=== PATIENT | male | born 1995 | race Caucasian/White ===

== ENCOUNTER 2022-07-04 01:20 | Emergency (ER) | payer MEDICAID, SELFPAY ==
[2022-07-04 01:24] VITALS: BP 121/82; PULSE 105; RESP 16; TEMP 36.6; O2SAT 96; BMI 37.7
--- NOTE | 2022-07-04 03:23 | ED_ITS ---
HPI - Skin/Abscess/Foreign Bdy General Chief complaint: Skin/Abscess/Foreign Body Stated complaint: abscess on low back Time Seen by Provider: 07/04/22 02:57 Source: patient Mode of arrival: ambulatory Limitations: no limitations History of Present Illness HPI narrative: Patient comes to the emergency room complaining of a pilonidal cyst that started hurting approximately 3 days ago. Patient states that since he was in high school, he has had multiple pilonidal cyst. Patient has an appointment with Dr. Gonzales from surgery in 5 days for an intake, seems set a marsupialization will be planned according to the patient. Patient denies any fever or chills Related Data Previous Rx's Medication Instructions Recorded oxycodone 5 mg capsule 5 mg PO TID PRN pain #7 caps 07/04/22 sulfamethoxazole 800 1 tab PO BID #14 tabs 07/04/22 mg-trimethoprim 160 mg tablet (Bactrim DS) Allergies Allergy/AdvReac Type Severity Reaction Status Date / Time No Known Allergies Allergy Unverified 03/04/20 17:53 Review of Systems Review of Systems: Constitutional : No Weight loss, No Fever, No Chills, No Night Sweats, No Fatigue, No Malaise ENT/Mouth : No Hearing loss, No Ear Pain, No Nasal Congestion, No Sinus Pain, No Hoarseness, No sore throat, No Rhinorrhea, No Swallowing Difficulty Eyes: No Eye Pain, No Swelling, No Redness, No Foreign Body, No Discharge, No Vision Changes Cardiovascular : No Chest Pain, No SOB, No Dyspnea on Exertion, No Orthopnea, No Edema, No Palpitations Respiratory : No Cough, No Sputum, No Wheezing, No Smoke Exposure, No Dyspnea Gastrointestinal : No Nausea, No Vomiting, No Diarrhea, No Constipation, No abdominal Pain, No Hematochezia, No Melena Genitourinary : no irregular bleeding, No Dysuria, No Urinary Frequency, No Hematuria, No Urinary Incontinence, No Urgency, No Flank Pain, No Urinary Flow Changes, No Hesitancy Musculoskeletal : No joint pain, No Myalgias, No Joint Swelling Skin : Complaining of recurrent pilonidal cyst Neuro : No Weakness, No Numbness, No Paresthesias, No Loss of Consciousness, No Dizziness, No Headache Psych : No Anxiety/Panic, No Depression, No SI/HI/AH/VH, No Social Issues, Heme/Lymph: No Bruising, No Bleeding,No Lymphadenopathy Endocrine : No Polyuria, No Polydipsia, No Temperature Intolerance FORMERLY [facility], [facility]–1983 Past Medical History Medical History (Updated 07/04/22 @ 04:15 by Radha Marks MD) Chronic recurrent pilonidal cyst Social History Social History Advance Directives: No Physical Exam Vital Signs: Vital Signs: Last Vital Signs Temp 97.9 F 07/04/22 01:24 Pulse 105 H 07/04/22 01:24 Resp 16 07/04/22 01:24 BP 121/82 07/04/22 01:24 Pulse Ox 96 07/04/22 01:24 O2 Del Method 07/04/22 01:24 BMI result Body Mass Index 37.7 Const: Other: Appearance: Alert. Oriented X3. No acute distress. Eyes: Pupils equal, round and reactive to light. ENT: Pharynx normal. Neck: Normal inspection. Neck supple. No lymph nodes noted. No crepitus CVS: Normal heart rate and rhythm. Pulses normal. Normal S1 and S2 Respiratory: No respiratory distress. Breath sounds normal. No Wheezing. No rales Abdomen: Soft and nontender. No rigidity. No distention. Skin: Skin warm and dry. Patient has a small pilonidal cyst, midline, very tender to touch. Ultrasound shows a small, less than 1 cm cyst Extremities: No lower extremity edema. No Lacerations. No Rash Neuro: Oriented X 3. No motor deficit. No sensory deficit. Moving all extremities. No slurred speech. CN 2 through 12 grossly intact Psych: calm, cooperative, normal affect Course Course Course Narrative: -patient has had this recurrent pilonidal cyst, patient agreeable to incision and drainage Medical Decision Making Medical Decision Making [facility] Narrative: Approximately 20 mL pus were drained -patient has packing in place. -patient instructed to call Dr. Gonzales' office later today, hopefully some of the cancels outpatient surgery, patient can be put on the list Procedures Abscess I/D Site: other (Pilonidal cyst) Local Anesthetic: lidocaine 1% Amount of anesthesia used (mL): 10 Technique: incised with blade and ultrasound guided Amount of fluid expressed (mL): 20 Packing used?: iodoform Discharge Plan Discharge Clinical Impression: Chronic recurrent pilonidal cyst Patient Disposition: Home, Self-Care Instructions: Pilonidal Cyst (ED) Additional Instructions: Please follow-up with your primary care physician tomorrow. If you have any worsening or new symptoms, please return to the emergency room or call 911 Prescriptions: New oxycodone 5 mg capsule 5 mg PO TID PRN (Reason: pain) Qty: 7 0RF Rx Instructions: Partial Fill upon patient request. sulfamethoxazole-trimethoprim [Bactrim DS] 800-160 mg tablet 1 tab PO BID Qty: 14 0RF
[2022-07-04] MEDS: Lidocaine HCl 1 % 20 ML VIAL 30 ML INFILTRATI (04:11)
[2022-07-04] MEDS: oxyCODONE HCl Immed Release 5 MG TABLET PO (04:49)
[2022-07-04 04:51] VITALS: RESP 16; O2SAT 98
== END 2022-07-04 04:52 | disposition home or self-care (01) ==
PROVIDERS: Emergency Provider Emergency Medicine
DX: L05.91 Pilonidal cyst without abscess (principal)
CPT/HCPCS: 10080; 99283; 99284

== ENCOUNTER → 2022-07-10 14:34 | Outpatient (BNVA) | payer MEDICAID, SELFPAY | PROVIDERS: Visit Provider Surgery | DX: L05.91 Pilonidal cyst without abscess (principal) | CPT/HCPCS: 99202 ==

== ENCOUNTER 2022-08-10 10:19 | Emergency (ER) | payer MEDICAID, SELFPAY ==
[2022-08-10 10:29] VITALS: BP 147/93; PULSE 81; RESP 16; TEMP 36.6; O2SAT 99; BMI 29.9
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
== END 2022-08-10 12:00 | disposition home or self-care (01) ==
PROVIDERS: Emergency Provider Emergency Medicine
DX: S80.00XA Contusion of unspecified knee, initial encounter (principal); V43.52XA Car driver injured in collision with other type car in traffic accident, initial encounter; M62.838 Other muscle spasm; Y93.89 Activity, other specified; Y92.414 Local residential or business street as the place of occurrence of the external cause; Y99.9 Unspecified external cause status
CPT/HCPCS: 99283

== ENCOUNTER 2022-08-18 06:09 | Day surgery (SDC) | payer MEDICAID, SELFPAY ==
[2022-08-15 08:16] VITALS: BMI 37.7
--- NOTE | 2022-08-17 11:40 | HO.ANESPROP2 ---
Documented by User: Delores Green NP 08/17/22 11:41 HPI - Anesthesia Eval Consult details Narrative: 27yo M for Excision Pilonidal Cyst of the sacrococcygeal area PMFSH Active Problems Active Problems: All Active Problems (Updated 08/11/22 @ 00:01 by Background Daemon) Morbid obesity (Acute) Chronic recurrent pilonidal cyst (Acute) Past Medical History Medical History (Updated 08/11/22 @ 00:01 by Background Daemon) Chronic recurrent pilonidal cyst Morbid obesity Family History Family History Mother Hernia Father Prostate CA Surgical History Surgical History (Updated 08/18/22 @ 06:15 by Casandra Segal RN) History of incision and drainage Hx of hand surgery Social History Social History (Updated 07/10/22 @ 14:53 by Daisy Zhou CMA) Alcohol intake: never Patient Tobacco Use Status: Former Tobacco user Quit Date: > 1 yr ago Cigarette Packs Per Day: 0 Use of substances other than those prescribed or required for medical reasons: No Are you DNR?: No Advance Directives: No Advance Directives Information Provided: Yes Meds Allergies Allergy/AdvReac Type Severity Reaction Status Date / Time No Known Allergies Allergy Unverified 07/10/22 14:48 Home Medications Medication Instructions Recorded Confirmed Last Taken Type multivitamin 1 tab PO DAILY 08/18/22 08/18/22 Unknown History Exam Exam Date and Time: August 17, 2022 1140 Height,Weight and Vital Signs: Height 6 ft 4 in Weight 140.614 kg Assessment and Plan Assessment Anesthesia Assessment: Chart Reviewed Documented by User: Mario Oneal MD 08/18/22 07:59 PMFSH Past Medical History Medical History (Updated 08/11/22 @ 00:01 by Background Daaurora) Chronic recurrent pilonidal cyst Morbid obesity Family History Family History Mother Hernia Father Prostate CA Family history of problems with anesthesia: No Surgical History Surgical History (Updated 08/18/22 @ 06:15 by Casandra Segal RN) History of incision and drainage Hx of hand surgery History of Problems with Anesthesia: No Social History Social History (Updated 07/10/22 @ 14:53 by Daisy Zhou CMA) Alcohol intake: never Patient Tobacco Use Status: Former Tobacco user Quit Date: > 1 yr ago Cigarette Packs Per Day: 0 Use of substances other than those prescribed or required for medical reasons: No Are you DNR?: No Advance Directives: No Advance Directives Information Provided: Yes Meds Allergies Allergy/AdvReac Type Severity Reaction Status Date / Time No Known Allergies Allergy Unverified 07/10/22 14:48 Home Medications Medication Instructions Recorded Confirmed Last Taken Type multivitamin 1 tab PO DAILY 08/18/22 08/18/22 Unknown History Exam Airway Mallampati Class: II TM Dist: >3cm Neck ROM: Full Heart: rrr Lungs: cta Assessment and Plan Final Anesthetic Review Family History of Problems with Anesthesia: No History of Problems with Anesthesia: No NPO: Yes ASA Class: II Final Preanesthetic Review: No Changes in Pt Med Stat, Meds/Allgs Chart Reviewed, Consent Obtained/Reviewed and Anes Risks/Benef Reviewed Patient Risk: Low Procedure Risk: Low Anesthetic Plan Anesthetic Plan: GA and Agree w/ Assess. and Plan Disposition: Standard PACU
[2022-08-18] VITALS (7 sets, daily range): BP systolic 122–147; BP diastolic 70–92; PULSE 77–86; RESP 15–18; TEMP 35.8–36.3; O2SAT 93–98
[2022-08-18] MEDS: Lactated Ringers 1,000 ML 100 ML IVCONT (06:39)
--- NOTE | 2022-08-18 07:24 | MHC.SHP ---
Pre-Procedural Eval Section A Date of Service: 08/18/22 Section B Chief Complaint: Pilonidal cyst without abscess Details of Present Illness: recurrent sacrococcygeal swelling and drainage Relevant Family History (Specify if Yes): No Present Medications: see Short Stay Collaborative assessment Medical History: Significant History (obesity) History of Previous Operations: Relevant previous surgery/procedure and date(s) Allergies: Allergies Allergy/AdvReac Type Severity Reaction Status Date / Time No Known Allergies Allergy Unverified 07/10/22 14:48 Review of Systems Sugical H&P ROS: Negative: Constitution, Cardiovascular, Respiratory, Neurological, Psychiatric, Hem-Onc, Allergic/Immunologic, Gastrointestinal, Genitourinary, Musculoskeletal, Integumentary, Endocrine and Eyes/Ears/Nose/Throat Exam Surgical H&P Exam: Normal: HEENT, Normal: Heart, Normal: Lungs, Normal: Extremities, Normal: Abdomen, Normal: Skin and Normal: Neurological Exam Comment: induration on sacrococcygea area Plan Diagnosis/Plan: Unchanged I have reviewed the history and physical and performed a pertinent physical examination on my patient. No changes have occurred unless specified. Time Spent With Patient Time: Total time managing care of this patient today ____ minutes.
--- NOTE | 2022-08-18 08:10 | W.PM.OPN ---
Operative Note Operative Note Date of Service: 08/18/22 Narrative: Preop diagnosis: Pilonidal cyst, sacrococcygeal area Postop diagnosis: The same Procedure: Excision of pilonidal cyst, sacrococcygeal area Surgeon: Alex Calvin MD assistant operations manager: ELAINE Mclaughlin The patient is a 27-year-old male with a wide area of induration on the sacrococcygeal region, with recurrent swelling, and chronic drainage. This was consistent with a pilonidal cyst. He understood the technique of excision. He was aware of the risks, benefits, and alternatives. he was brought to the operating room. He was placed in prone position. The buttocks were retracted with wide tape laterally. The perianal area was prepped and draped in the usual sterile fashion. A surgical time-out. The patient received cefazolin 2 g IV preoperatively I infiltrated the planned line of incision with lidocaine 1%. I made the incision on the skin using blade 15 ellliptically around this entire and area of induration. I carried incision down through the full-thickness of the skin and subcutaneous fat using electrocautery. I continued to dissect through the thick subcutaneous layer to excise the entire indurated area. I may certain that all the disease skin and subcutaneous tissue and potential tracts were removed with the specimen. I excised area was 11 cm long, 7 cm wide and 6 cm at the deepest segment. I copiously irrigated. I cauterized oozing areas. I then undermine both sides to flaps with thick subcutaneous fat and skin allow closure without tension. Once hemostasis was confirmed, I reapposed the deep subcutaneous layer with Polysorb 3-0 simple interrupted sutures. Skin closure was achieved with nylon 3-0 interrupted sutures, simple alternating with vertical mattress The area was then infiltrated with Marcaine 0.5% for postop analgesia. Dressings were applied. The procedure was completed The patient tolerated procedure well. There were no immediate complications. Initial and final counts of sponges and instruments were correct. Estimated blood loss about 75 cc. The patient was extubated without difficulty and transferred to the recovery room with stable vital signs.
== END 2022-08-18 10:55 | disposition home or self-care (01) ==
PROVIDERS: Visit Provider Surgery
PROC: (CPT 11771; principal; 2022-08-18 07:30)
DX: L05.91 Pilonidal cyst without abscess (principal); E66.01 Morbid (severe) obesity due to excess calories; Z68.37 Body mass index [BMI] 37.0-37.9, adult; Z87.891 Personal history of nicotine dependence
CPT/HCPCS: 11771; 88304; J0131; J0690; J1100; J1885; J2405; J2795

== ENCOUNTER 2022-08-27 15:39 | Emergency (ER) | payer MEDICAID, SELFPAY ==
[2022-08-27 15:45] VITALS: BP 124/55; PULSE 81; RESP 18; TEMP 36.6; O2SAT 100; BMI 35.3
--- NOTE | 2022-08-27 15:45 | ED_ITS ---
HPI - Skin/Abscess/Foreign Bdy General Chief complaint: Recheck/Abnormal Lab/Rx Stated complaint: get stiches checked Time Seen by Provider: 08/27/22 15:45 Source: patient Mode of arrival: ambulatory Limitations: no limitations History of Present Illness HPI narrative: 27 yo male presents to the ER for evaluation of a bleeding episode after he had pilonidal cyst removal by Dr. Calvin on 08/18/22. He states he had just gone to the bathroom when he was walking in his home and he felt liquid running down his leg. He states it was blood. There was no pus drainage. He put a new dressing on and came right to the ER for evaluation. He reports ongoing pain, up to a 9/10. He has been taking his pain medications as prescribed by Dr. Calvin. He has had no bleeding episodes except for the 1 today. He also reports no bowel movement since before the operation. He is not taking any laxatives or stool softeners. He denies any abdominal pain, nausea, vomiting. MD complaint: other (Postop bleeding) Onset (ago): minute(s) Location: buttocks Severity: severe Severity scale (1-10): 9 Relieving factors: medication Exacerbating factors: other (Sitting and sleeping) Context: other (Recent pilonidal cyst excision) Associated symptoms: other (Constipation) Treatments prior to arrival: bandages Related Data Home Medications Medication Instructions Recorded Confirmed multivitamin 1 tab PO DAILY 08/18/22 08/18/22 Previous Rx's Medication Instructions Recorded cyclobenzaprine 10 mg tablet 10 mg PO TID PRN muscle spasm #14 08/10/22 tabs ibuprofen 800 mg tablet 800 mg PO Q8H PRN pain #14 tabs 08/10/22 ibuprofen 600 mg tablet 600 mg PO Q6H PRN pain #30 tabs 08/18/22 oxycodone-acetaminophen 5 mg-325 1 tab PO Q4-6H PRN pain #30 tabs 08/18/22 mg tablet (Percocet) docusate sodium 100 mg capsule 100 mg PO BID #20 caps 08/27/22 (Colace) polyethylene glycol 3350 17 gram 17 g PO DAILY #14 ea 08/27/22 oral powder packet (Miralax) sennosides 8.6 mg capsule (senna) 8.6 mg PO BEDTIME #10 caps 08/27/22 Allergies Allergy/AdvReac Type Severity Reaction Status Date / Time No Known Allergies Allergy Unverified 07/10/22 14:48 Review of Systems Review of Systems: Yes all other systems are reviewed and are negative [facility] Past Medical History Medical History (Updated 08/27/22 @ 15:53 by ELAINE Carvalho) Chronic recurrent pilonidal cyst Morbid obesity Surgical History (Updated 08/25/22 @ 15:41 by MISSY Yeung) History of excision of pilonidal cyst (08/18/22) History of incision and drainage Hx of hand surgery Family History Family History Mother Hernia Father Prostate CA Social History Social History (Updated 07/10/22 @ 14:53 by Daisy Zhou CMA) Alcohol intake: never Patient Tobacco Use Status: Former Tobacco user Quit Date: > 1 yr ago Cigarette Packs Per Day: 0 Advance Directives: No Advance Directives Information Provided: Yes Physical Exam Vital Signs: Appearance: Alert. Oriented X3. No acute distress. HEENT: normal inspection Respiratory: No respiratory distress. Back: gluteal cleft with moderate surrounding ecchymosis, there is a well healing surgical incision with multiple sutures in place, no wound dehiscence, no active area of bleeding. There is a small area midway down the incision with dried blood, wound margin seems to be well approximated. Skin: Skin warm and dry. Normal skin color. Normal skin turgor. No rashes. Extremities: Normal inspection x4, normal range of motion Neuro: Oriented X 3 grossly normal, nonfocal Medical Decision Making Medical Decision Making MDM Narrative: 27-year-old male presents to the ER for evaluation of bleeding from his surgical wound 9 days after he had a pilonidal cyst excised by Dr. Calvin. No active bleeding on arrival. Wound appears to be healing appropriately. He has a postop appointment with Dr. Toney tomorrow at 10:00. He has postoperative constipation and has been taking opiates without any stool softeners or laxatives. Will start him on a bowel regimen. Prescription sent to his pharmacy. He was counseled. He will follow-up with Dr. Calvin in the morning. Return precautions were discussed. Stable for DC. Differential Diagnosis Differential Diagnoses: The differential diagnosis associated with the presentation includes Wound dehiscence, superficial, brief bleeding episode, no evidence of cellulitis or postoperative infection, no delayed wound healing External Record Review External record reviewed: Inpatient record, Office record and Outpatient record Prescription Management I considered prescription management with: Other (Laxative) Critical Care Time Critical Care Time Critical Care Time: No Discharge Plan Discharge Clinical Impression: Post-op pain, Constipation Patient Disposition: Home, Self-Care Instructions: Constipation (ED), Acute Wounds (ED) Additional Instructions: Your wound appeared to be intact, no evidence of active bleeding or the wound coming apart. Continue frequent dressing changes and monitoring for bleeding. Continue prescribed pain medication as directed. Increase your fiber intake and stay hydrated. Take the prescribed laxatives and stool softeners for your constipation. Prescriptions: New polyethylene glycol 3350 [Miralax] 17 gram powder in packet 17 g PO DAILY Qty: 14 0RF senna 8.6 mg capsule 8.6 mg PO BEDTIME Qty: 10 0RF docusate sodium [Colace] 100 mg capsule 100 mg PO BID Qty: 20 0RF No Action cyclobenzaprine 10 mg tablet 10 mg PO TID PRN (Reason: muscle spasm) Qty: 14 0RF ibuprofen 800 mg tablet 800 mg PO Q8H PRN (Reason: pain) Qty: 14 0RF multivitamin Tablet 1 tab PO DAILY oxycodone-acetaminophen [Percocet] 5-325 mg tablet 1 tab PO Q4-6H PRN (Reason: pain) Qty: 30 0RF Rx Instructions: Partial Fill upon patient request. ibuprofen 600 mg tablet 600 mg PO Q6H PRN (Reason: pain) Qty: 30 0RF
== END 2022-08-27 16:00 | disposition home or self-care (01) ==
PROVIDERS: Emergency Provider Student in an Organized Health Care Education/Training Program
DX: G89.18 Other acute postprocedural pain (principal); K59.00 Constipation, unspecified; Z87.891 Personal history of nicotine dependence; Z79.899 Other long term (current) drug therapy
CPT/HCPCS: 99283

== ENCOUNTER → 2022-08-28 10:53 | Outpatient (BNVA) | payer MEDICAID, SELFPAY | PROVIDERS: PCP Internal Medicine; Visit Provider Surgery ==

== ENCOUNTER → 2022-09-06 15:33 | Outpatient (BNVA) | payer MEDICAID, SELFPAY | PROVIDERS: PCP Internal Medicine; Visit Provider Surgery ==

== ENCOUNTER → 2023-01-24 10:25 | Outpatient (BNVA) | payer OTHER, SELFPAY | PROVIDERS: PCP Internal Medicine; Visit Provider Physician Assistant | DX: S79.911A Unspecified injury of right hip, initial encounter (principal); X58.XXXA Exposure to other specified factors, initial encounter | CPT/HCPCS: 99204 ==

== ENCOUNTER → 2023-01-26 10:37 | Outpatient (BNVA) | payer OTHER, SELFPAY | PROVIDERS: PCP Internal Medicine; Visit Provider Physician Assistant | DX: S76.191A Other specified injury of right quadriceps muscle, fascia and tendon, initial encounter (principal); S73.191A Other sprain of right hip, initial encounter; X58.XXXA Exposure to other specified factors, initial encounter | CPT/HCPCS: 99213 ==

== ENCOUNTER 2023-10-16 08:06 | Emergency (ER) | payer OTHER, SELFPAY ==
[2023-10-16 08:40] VITALS: BP 126/78; PULSE 89; RESP 18; TEMP 36.3; O2SAT 98; BMI 38.8
[2023-10-16 09:01] LABS: IDNOW Serial# 08D9AD1C; Strep A Nucleic Acid Negative (Negative)
[2023-10-16 09:07] LABS: COVID-19 Test Negative (Negative); IDNOW Serial# 58CA691E
[2023-10-16 09:11] LABS: IDNOW Serial# 9DB6401D; Influenza A Negative (Negative); Influenza B2 Negative (Negative)
--- NOTE | 2023-10-16 10:40 | ED.URI ---
HPI - URI/Sore Throat General Chief Complaint: Upper Respiratory Symptoms Stated Complaint: Ear and Throat Pain Time Seen by Provider: 10/16/23 10:27 Source: patient Mode of arrival: ambulatory Limitations: no limitations History of Present Illness HPI Narrative: This is a 28-year-old male history of obesity, pilonidal cyst presenting to the emergency department with a few days of right-sided ear pain, headache, sore throat, fatigue, malaise, myalgias. Patient reports he is just feeling overall unwell also reporting associated body aches and pains. Denies sick contacts. Denies chest pain, shortness of breath, nausea, vomiting, abdominal pain, vision changes, dizziness, weakness, changes in voice or drooling. Patient is still eating and drinking. Related Data Home Medications ?Medication ?Instructions ?Recorded ?Confirmed multivitamin 1 tab PO DAILY 08/18/22 08/18/22 Previous Rx's ?Medication ?Instructions ?Recorded cyclobenzaprine 10 mg tablet 10 mg PO TID PRN muscle spasm #14 08/10/22 tabs ibuprofen 600 mg tablet 600 mg PO Q6H PRN pain #30 tabs 08/18/22 docusate sodium 100 mg capsule 100 mg PO BID #20 caps 08/27/22 (Colace) polyethylene glycol 3350 17 gram 17 g PO DAILY #14 ea 08/27/22 oral powder packet (Miralax) sennosides 8.6 mg capsule (senna) 8.6 mg PO BEDTIME #10 caps 08/27/22 oxycodone-acetaminophen 5 mg-325 1 tab PO Q4-6H PRN pain #20 tabs 08/28/22 mg tablet (Percocet) ibuprofen 800 mg tablet 800 mg PO TID PRN pain #60 tabs 01/24/23 acetaminophen 325 mg capsule 325 mg PO Q4H PRN pain #30 caps 10/16/23 (Tylenol) amoxicillin 875 mg-potassium 1 tab PO BID 10 days #20 tabs 10/16/23 clavulanate 125 mg tablet ciprofloxacin 0.3 %-dexamethasone 4 drp otic (ears) BID 7 days #7.5 10/16/23 0.1 % ear drops,suspension mL (Ciprodex) Allergies Allergy/AdvReac Type Severity Reaction Status Date / Time No Known Allergies Allergy Verified 10/16/23 08:41 Review of Systems Review of Systems: Yes all other systems are reviewed and are negative FORMERLY [facility], [facility]–1983 Past Medical History Attestation statement: The following information was validated with the patient. Source: old records reviewed and nursing notes reviewed Medical History Morbid obesity Chronic recurrent pilonidal cyst Surgical History History of excision of pilonidal cyst (08/18/22) Hx of hand surgery History of incision and drainage Family History Family History Mother Hernia Father Prostate CA Social History Social History Alcohol intake: never Patient Tobacco Use Status: Former Tobacco user Quit Date: > 1 yr ago Cigarette Packs Per Day: 0 Smoked in Last 30 Days: No Use of substances other than those prescribed or required for medical reasons: No Advance Directives: No Advance Directives Information Provided: Yes Do you have a plan to hurt others: No Plan Physical Exam Vital Signs: Vital Signs: Last Vital Signs Temp 97.4 F 10/16/23 11:21 Pulse 85 10/16/23 11:21 Resp 20 10/16/23 11:21 BP 138/88 10/16/23 11:21 Pulse Ox 96 10/16/23 11:21 O2 Del Method Room Air 10/16/23 11:21 BMI result Body Mass Index 38.8 Vital signs stable Appearance: Alert.? Oriented X3.? No acute distress.? Head: Normocephalic, atraumatic, no step-offs or deformities Eyes: Pupils equal, round and reactive to light.? ENT:? Uvula midline. Tonsils with slight edema, no erythema, exudate or abscess noted. Speaking in full sentences controlling secretions well. Right tympanic membrane erythematous and bulging with associated ear canal erythema and discomfort with manipulation of right external ear. No right-sided mastoid tenderness. Left tympanic membrane, ear canal normal. No pain with manipulation of left external ear. No mastoid tenderness bilaterally. Neck: Normal inspection.? Neck supple.? CVS: Normal heart rate and rhythm.? Pulses normal.? Respiratory: No respiratory distress.? Breath sounds normal.? Abdomen: Soft and nontender.? Skin: Skin warm and dry.? Normal skin color.? Normal skin turgor.? Extremities: No lower extremity edema.? No calf ttp. 5/5 strength to bilateral upper and lower extremities Back: No midline tenderness, no C-spine tenderness, full range of motion, no CVA tenderness bilaterally Neuro: Oriented X 3.? No motor deficit.? No sensory deficit. CN 2-12 intact . Normal [id number], [id number] steady tandem gait normal coordination. Negative Romberg and pronator drift. Course Reevaluation(s) Reevaluation #1: Flu, COVID, RSV negative. Strep negative. Will treat him for otitis media and otitis externa. Educated patient on diagnosis and treatment plan, answered all question, patient verbalizes understanding. At this time patient will be discharged home, advised to return with new or worsening symptoms. Educated on worrisome signs and symptoms and when to return. At this time I feel comfortable discharge home. Time: 10:44 Medical Decision Making Medical Decision Making MDM Narrative: 28-year-old male presents with fatigue, malaise, myalgias, right-sided ear pain, headache, sore throat times a few days worsening. No sick contacts. Physical exam Uvula midline. Tonsils with slight edema, no erythema, exudate or abscess noted. Speaking in full sentences controlling secretions well. Right tympanic membrane erythematous and bulging with associated ear canal erythema and discomfort with manipulation of right external ear. No right-sided mastoid tenderness. Left tympanic membrane, ear canal normal. No pain with manipulation of left external ear. No mastoid tenderness bilaterally. History and physical exam concerning for viral illness with concomitant right-sided otitis media no otitis externa. No signs of mastoiditis, perforated tympanic membrane, necrotic ear. Unlikely retropharyngeal abscess, peritonsillar abscess, acute threat to airway, epiglottitis, intracranial hemorrhage, stroke, posterior stroke. Other differentials include viral illness flu versus COVID versus mononucleosis. Plan at this time viral testing, strep test Differential Diagnosis Differential Diagnoses: The differential diagnosis associated with the presentation includes History and physical exam concerning for viral illness with concomitant right-sided otitis media no otitis externa. No signs of mastoiditis, perforated tympanic membrane, necrotic ear. Unlikely retropharyngeal abscess, peritonsillar abscess, acute threat to airway, epiglottitis, intracranial hemorrhage, stroke, posterior stroke. Other differentials include viral illness flu versus COVID versus mononucleosis. Admission/Observation Consideration of admission/observation: Escalation of care including admission/observation considered Unlikely Lab Data MDM Lab Attestation statement: I reviewed the patient's lab results. Labs: Lab Results 10/16/23 Range/Units 08:47 COVID-19 ([facility]) Negative (Negative) COVID-19 Clin Com See Note Influenza Type A ([facility]) Negative (Negative) Influenza Type B ([facility]) Negative (Negative) Influenza A & B Note See Note S. pyogenes GrpA [facility] Negative (Negative) External Record Review External record reviewed: Inpatient record, Office record, Outpatient record, Prior outpatient labs, Prior outpatient radiology, Primary care record and Outside ED record Prescription Management I considered prescription management with: Pain Medication and Antibiotic Chronic Conditions Patient?s care impacted by: Other (obesity ) Discharge Plan Discharge Clinical Impression: Otitis media, Viral infection, Pharyngitis, Otitis externa Patient Disposition: Home, Self-Care Instructions: Pharyngitis (ED), Otitis Externa (DC), Ear Infection (ED), Viral Syndrome (ED) Additional Instructions: Take your medications as prescribed. If you were prescribed antibiotics today, it is important that you take your medication to their entirety, do not skip any doses, do not finish them early. Follow-up with your primary care provider this week. Return to the emergency department with new or worsening symptoms. Such as fevers, chills, chest pain, shortness of breath, nausea, vomiting, dizziness, headache, vision changes, lethargy In case of emergency call 911 Prescriptions: New amoxicillin-pot clavulanate 875-125 mg tablet 1 tab PO BID 10 Days Qty: 20 0RF ciprofloxacin-dexamethasone [Ciprodex] 0.3-0.1 % drops,suspension 4 drp otic (ears) BID 7 Days Qty: 7.5 0RF acetaminophen [Tylenol] 325 mg capsule 325 mg PO Q4H PRN (Reason: pain) Qty: 30 0RF No Action cyclobenzaprine 10 mg tablet 10 mg PO TID PRN (Reason: muscle spasm) Qty: 14 0RF polyethylene glycol 3350 [Miralax] 17 gram powder in packet 17 g PO DAILY Qty: 14 0RF senna 8.6 mg capsule 8.6 mg PO BEDTIME Qty: 10 0RF docusate sodium [Colace] 100 mg capsule 100 mg PO BID Qty: 20 0RF multivitamin Tablet 1 tab PO DAILY ibuprofen 600 mg tablet 600 mg PO Q6H PRN (Reason: pain) Qty: 30 0RF oxycodone-acetaminophen [Percocet] 5-325 mg tablet 1 tab PO Q4-6H PRN (Reason: pain) Qty: 20 0RF Rx Instructions: Partial Fill upon patient request. ibuprofen 800 mg tablet 800 mg PO TID PRN (Reason: pain) Qty: 60 0RF Referrals: Malena Michaels MD [Primary Care Provider] - 2 days Stand Alone Forms: Work/School Release Interventions: ED Discharge Assessment Last Done: 10/16/23 11:21 Discharge Date/Time: 10/16/23 11:22 Print Language: Lithuanian
[2023-10-16 11:21] VITALS: BP 138/88; PULSE 85; RESP 20; TEMP 36.3; O2SAT 96
== END 2023-10-16 11:22 | disposition home or self-care (01) ==
PROVIDERS: Emergency Provider Emergency Medicine; PCP Internal Medicine
DX: H66.91 Otitis media, unspecified, right ear (principal); H60.91 Unspecified otitis externa, right ear; J02.9 Acute pharyngitis, unspecified; B34.9 Viral infection, unspecified; Z11.52 Encounter for screening for COVID-19
CPT/HCPCS: 87502; 87635; 87651; 99283; 99284

== ENCOUNTER 2023-11-02 12:07 | Outpatient (REF) | payer OTHER, SELFPAY ==
[2023-11-02 13:17] LABS: MANUAL DIFF FLAG NO
[2023-11-02 13:31] LABS: Basophils Absolute Auto 0.1 X10*3/uL (0.0-0.2); Basophils Percent Auto 0.7 % (0-2); Eosinophils Absolute Auto 0.2 X10*3/uL (0.0-0.4); Eosinophils Percent Auto 2.5 % (0-4); Hematocrit 46.5 % (42.0-52.0); Hemoglobin 15.8 g/dl (14.0-18.0); Imm Gran Abs Auto 0.03 X10*3/uL (0.00-0.03); Imm Gran Pct Auto 0.3 % (0.0-0.4); Lymphocytes Absolute Auto 2.9 X10*3/uL (1.2-4.9); Lymphocytes Percent Auto 32.8 % (20-40); Mean Corpuscular Hemoglobin 28.5 pg (27.0-33.0); Mean Corpuscular Volume 83.9 fL (80.0-98.0); Mean Platelet Volume 9.7 fL (9.4-12.4); Monocytes Absolute Auto 0.6 X10*3/uL (0.1-1.2); Monocytes Percent Auto 6.3 % (2-11); Neutrophils Absolute Auto 5.1 x10*3/uL (2.0-8.3); Neutrophils Percent Auto 57.4 % (45-73); Platelet Count 267 X10*3/uL (160-400); Red Blood Count 5.54 X10*6/uL (4.60-5.80); Red Cell Distribution Width 13.2 % (11.0-16.0); White Blood Count 8.9 X10*3/uL (4.8-10.8)
[2023-11-02 13:45] LABS: Estimated Average Glucose 128 mg/dL; Hemoglobin A1c % 6.1 % (<6.0)
[2023-11-02 14:03] LABS: Alanine Aminotransferase 39 U/L (0-40); Albumin Level 5.2 g/dL (3.5-5.0); Alkaline Phosphatase 75 U/L (39-117); Anion Gap 17 (12-20); Aspartate Amino Transferase 21 U/L (5-37); Bilirubin Direct 0.1 mg/dL (0.0-0.5); Bilirubin Total 0.4 mg/dL (0.0-1.0); Blood Urea Nitrogen 21 mg/dL (9-16); Calcium 10.2 mg/dL (8.4-10.2); Carbon Dioxide 20 mmol/L (22-29); Chloride 107 mmol/L (96-108); Cholesterol 211 mg/dL (<200); Estimated Glomerular Filt Rate > 60; Glucose Random 112 mg/dL (60-115); HDL Cholesterol 36 mg/dL (>40); LDL Cholesterol Calculated 112 mg/dL (<100); Potassium 4.5 mmol/L (3.3-5.1); Sodium 139 mmol/L (135-145); Total Protein 8.9 g/dL (6.5-8.0); Triglycerides 316 mg/dL (<150)
[2023-11-02 14:07] LABS: TSH reflex Free T4 1.68 uIU/mL (0.32-4.0)
[2023-11-03 10:53] LABS: ~HepC Num1 0.07 S/CO (0.00-0.79); ~Hepatitis C Antibody Nonreactive (Nonreactive)
[2023-11-04 21:53] LABS: TS Negative Control Passed; TS Panel A 0; TS Panel B 2; TS Positive Control Passed; TSpotTB Negative (Negative)
[2023-11-06 20:59] LABS: HIV RNA PCR Qn Copies Not Detected Copies/mL; HIV RNA PCR Qn Log Copies Not Detected Log cps/mL
== END 2023-11-02 12:08 | disposition home or self-care (01) ==
LOC: HO.HHCL 12:07
PROVIDERS: Visit Provider Internal Medicine
DX: Z00.00 Encounter for general adult medical examination without abnormal findings (principal); Z11.1 Encounter for screening for respiratory tuberculosis
CPT/HCPCS: 36415; 80048; 80061; 80076; 83036; 84443; 85025; 86481; 86803; 87070; 87147; 87536; 87900